=== PATIENT | male | born 2000 | race Caucasian/White ===

== ENCOUNTER 2023-09-23 15:14 | Emergency (ER) | payer SELFPAY ==
[2023-09-23 15:16] VITALS: BP 154/84
[2023-09-23 15:42] LABS: % Basophils 0.7 % (0-2); % Eosinophils 0.1 % (0-6); % Immature Granulocytes 0.4 % (0-0.5); % Lymphocytes 16.3 % (20.5-51.1); % Monocytes 9.6 % (1.7-9.3); % Neutrophils 72.9 % (42.2-75.2); Absolute Basophils 0.1 10^3/uL (0-0.2); Absolute Lymphocytes 1.1 10^3/uL (1.2-3.4); Absolute Monocytes 0.7 10^3/uL (0.1-0.6); Absolute Neutrophils 4.9 10^3/uL (1.4-6.5); Hematocrit 45.3 % (39.0-52.0); Hemoglobin 15.6 g/dL (13.0-18.0); Mean Corp Hgb Conc. 34.4 g/dL (33.0-37.0); Mean Corpuscular Volume 92.8 fL (80.0-94.0); Mean Platelet Volume 11.4 fL (7.4-10.4); Nucleated Red Blood Cells % 0 % (-); Platelet Count 166 10^3/uL (130-400); Red Blood Cell Count 4.88 10^6/uL (4.70-6.10); Red Cell Dist. Width 12.8 % (11.5-14.5); White Blood Cell Count 6.8 10^3/uL (4.8-10.8)
[2023-09-23 16:00] LABS: ALT (SGPT) 22 U/L (0-50); AST (SGOT) 32 U/L (17-59); Alkaline Phosphatase 58 U/L (38-126); Blood Urea Nitrogen 8 mg/dl (9-20); Calcium 10.3 mg/dl (8.4-10.2); Carbon Dioxide 27 mmol/L (22-30); Chloride 102 mmol/L (98-107); Glucose 123 mg/dl (70-99); Potassium 4.1 mmol/L (3.5-5.1); Sodium 137 mmol/L (135-145); Total Bilirubin 1.2 mg/dl (0.2-1.3); Total Protein 7.7 g/dl (6.3-8.2); eGFR > 60.00
--- NOTE | 2023-09-23 17:12 | ED.GENMED ---
History of Present Illness
General
Chief Complaint: Fatigue
Source: patient
Exam Limitations: none
Time Seen by Provider: 09/23/23 15:40
Nursing documentation reviewed up to this point in time: agreed with
Travel History
Have you had any contact with someone who has COVID-19?: No
Do you have any symptoms of coronavirus? Fever > 100 degrees, chills, cough, shortness of breath, sore throat, loss of taste or smell, muscle aches, or headache?: No
History of Present Illness
History of Present Illness:
The patient is a 23-year-old man who comes in with complaints of feeling extremely anxious. 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 He reports that he feels he may have overdone it and
feels sleep deprived and admits that he has not been eating well. He reports he has always had some degree of anxiety and depression but over the last 1 to 2 days, he feels like he is having panic attacks. The patient reports feeling as though his
heart is racing, he feels short of breath and extremely anxious. He denies suicidal and homicidal thoughts. Patient denies any current drug and alcohol use. He does report he smokes cigarettes. He denies a history of PE and DVT. He denies any
recent long car rides or plane rides. He denies fever but states he feels fatigued and nauseous. He denies abdominal pain. Patient reports that he was on antidepressant medication while he was in high school but currently is on no medications.
He reports he does drink lots of coffee as well but has not had coffee in at least 24 hours.
Past History
Past History
ED Past Medical History: Psychiatric (Anxiety, depression)
ED Past Surgical History: Other
Social History
Tobacco: Smoker
Alcohol: Occasional
Drug: None
Personal: Single
Living: with family
Employment: Employed
Family History
Family History: Other
Review of Systems
Review of Systems
Allergies reviewed?: Yes
Constitutional: Reports fatigue
EENT: Reports no symptoms
Respiratory: Reports trouble breathing
Cardiac: Reports palpitations
ABD/GI: Reports nausea and anorexia
: Reports no symptoms
Musculoskeletal: Reports no symptoms
Skin: Reports no symptoms
Neurological: Reports no symptoms
Endocrine: Reports no symptoms
Hematologic/Lymphatic: Reports no symptoms
Psychiatric: Reports no symptoms
Phy Exam
Physical Exam
Physical Exam:
Physical Exam
General: no apparent distress, not acutely ill, calm, cooperative and smiling
Neck: supple. no meningeal signs. normal psoterior pharynx
Heart: Tachycardic. No murmur
Lungs: no acute respiratory distress. clear bilaterally
Abdomen: normal bowel sounds. not tender. no CVAT
Neuro: alert and oriented. no focal neurological deficits
Skin: no rash
Psychiatric: well kept. interactive and cooperative
Extremities: no edema. no calf tenderness. negative homans. good distal pulses
Course
Orders/Labs/Results
Orders:
Orders
09/23/23 15:23
EKG [Electrocardiogram (*1)] Urgent
Reason for Study: Vertigo / Dizzy
EKG- Treatment ONCE
09/23/23 15:36
Complete Blood Count/With Diff Urgent
Comprehensive Metabolic Panel Urgent
TSH Urgent
Comment: ADD ON
09/23/23 17:54
Alprazolam [Xanax] 0.5 mg PO NOW STA
Ondansetron Orally Disint [Zofran Odt (Orally Disintegrating)] 4 mg PO NOW STA
09/23/23 17:59
Add On- LAB Urgent
Tests Added?: TSH
09/23/23 18:42
D-Dimer Urgent
Abnormal Lab Results
09/23/23
15:36
MCH 32.0 H pg
(27.0-31.0)
MPV 11.4 H fL
(7.4-10.4)
Absolute Lymphs (auto) 1.1 L 10^3/uL
(1.2-3.4)
Absolute Monos (auto) 0.7 H 10^3/uL
(0.1-0.6)
Lymphocytes % 16.3 L %
(20.5-51.1)
Monocytes % 9.6 H %
(1.7-9.3)
BUN 8 L mg/dl
(9-20)
Glucose 123 H mg/dl
(70-99)
Calcium 10.3 H mg/dl
(8.4-10.2)
09/23/23 15:36
09/23/23 15:36
Vital Signs
Initial and Last Documented VS:
Initial Vital Signs
Temp Pulse Resp BP Pulse Ox
98.3 F 112 18 154/84 98
09/23/23 15:16 09/23/23 15:16 09/23/23 15:16 09/23/23 15:16 09/23/23 15:16
Last Documented Vital Signs
Temp Pulse Resp BP Pulse Ox
98.3 F 74 18 105/59 98
09/23/23 15:16 09/23/23 19:35 09/23/23 19:35 09/23/23 19:35 09/23/23 15:16
MDM/Problems Addressed
Differential Diagnosis Includes:
Acute on chronic anxiety, pulmonary embolism, viral illness
MDM/Problems Addressed:
Patient presents with acute anxiety, fatigue and difficulty breathing
Chronic conditions affecting care: Psychiatric illness
Acute Exacerbation and/or Progression of Chronic Illness:
Patient likely has acute exacerbation of chronic anxiety
*Pulse Oximetry
Patient hypoxic: no
*EKG
Interpreted by ED Provider?: Yes
Interpretation: abnormal
Comparison EKG: no comparison EKG present
Rate: normal
Rhythm: sinus
Paola: right axis deviation
Interval: normal interval
QRS Pattern: normal QRS
Ischemia: no ischemia
*Critical Care Note
Total Time (30-74mins, 75-104mins- exclusive of procedures): Not Applicable
Update Note
Update Note:
8:08 PM patient looks extremely comfortable and well. I feel that his shortness of breath and tachycardia earlier were due to his anxiety. Heart rate is now normal in the 70s. Blood pressure has improved. Patient has social support and denies
homicidal and suicidal thoughts. He is calm and cooperative. Patient encouraged to follow-up with her primary care doctor in [place] to discuss his anxiety to discuss starting possibly an antianxiety medication such as Lexapro or Effexor.
Patient seems reasonable and goal-directed.
ED Attending Note
-
Portions of this chart may have been created with voice recognition software.� Occasional wrong word or��sound alike� substitutions may have occurred due to the inherent limitations of voice recognition software.
Discharge Plan
Departure
Patient Disposition: Home (Routine Discharge)
Date of Disposition: 09/23/23
Time of Disposition: 20:02
Patient with high blood pressure during this ER visit?: No
Condition: Good
Covid-19: Not Applicable
Discharge Problem:
Acute anxiety
Instructions: Anxiety, Adult ED
Referrals:
NONE,* [Family Provider] -
Activity Restrictions/Additional Instructions:
Please try to find a primary care doctor to discuss your anxiety with
Interventions
Interventions:
*Risk Screen - Suicide Last Done: 09/23/23 18:00
*General Assessment Last Done: 09/23/23 15:16
*Neglect/Abuse Screening Last Done: 09/23/23 18:00
ED- Fall Risk Assessment Last Done: 09/23/23 18:00
*ED COVID-19 Vaccine History Last Done: 04/06/24 15:16
Discharge Date and Time
Print Language: [id number]
[2023-09-23] MEDS: ZOFRAN ODT (ORALLY DISINTEGRATING) 4 MG PO (18:22)
[2023-09-23] MEDS: XANAX 0.5 MG PO (18:22)
[2023-09-23 19:06] LABS: D-Dimer 0.31 ug/mlFEU (0.00-0.50)
[2023-09-23 19:35] VITALS: BP 105/59
[2023-09-23 19:48] LABS: TSH 0.54 uIU/ml (0.47-4.68)
== END 2023-09-23 20:55 | disposition home or self-care (01) ==
LOC: EMR 15:14
PROVIDERS: Emergency Medicine; EMERGENCY PHYSICIAN Emergency Medicine
DX: F41.8 Other specified anxiety disorders (principal); F17.210 Nicotine dependence, cigarettes, uncomplicated
CPT/HCPCS: 99283; 80053; 84443; 85025; 85379; 93005